=== PATIENT | female | born 1995 | race American Indian/Alaskan Native ===

== ENCOUNTER 2019-02-25 18:50 | Emergency (ER) | payer OTHER ==
[2019-02-25] MEDS ORDERED: HYDROCODONE/APAP 5/325 MG TAB ONE (19:31)
[2019-02-25] MEDS ORDERED: LORAZEPAM 1 MG TABLET ONE (19:31)
[2019-02-25] MEDS ORDERED: TETANUS & DIPHTHERIA TOX,ADULT 0.5 ML VIAL ONE (19:32)
[2019-02-25] MEDS ORDERED: BUPIVACAINE 0.5% PF 10 ML VIAL ONE (20:24)
[2019-02-25] MEDS ORDERED: LIDOCAINE 2% MPF 5 ML VIAL ONE (20:24)
--- NOTE | 2019-02-25 20:40 | RAD REPORT ---
EXAM DESCRIPTION: RAD -Hand Left 3 View - 02/25/2019 8:12 pm CLINICAL HISTORY: Left hand pain status post injury FINDINGS: Small densities adjacent to the fourth terminal tuft likely represent avulsion fracture. A tiny density lies adjacent to the tip terminal tuft which could represent a fracture or foreign bod y. No dislocation is seen.
--- NOTE | 2019-02-25 21:19 | EDPHYS ---
Physician Documentation [facility] Name: Gosia Anderson Age: 24 yrs Sex: Female : 1995 Arrival Date: 02/25/2019 Time: 18:51 Bed 13 Private MD: Unknown, Unknown ED Physician Lebron White HPI: 02/25 19:05 This 24 yrs old Other Female presents to ER via Ambulatory with complaints of Finger jmm Injury, Laceration To Hand. 19:05 The patient or guardian reports injury, pain. Onset: The symptoms/episode jmm began/occurred acutely, just prior to arrival. Modifying factors: The symptoms are alleviated by nothing, the symptoms are aggravated by movement. Associated signs and symptoms:. This is a 24 year old female with no chronic medical conditions that presents to the ED with complaints of left 4th and 5th finger pain. Patient states a window slammed on her hand. Denies other injury. Unsure on tetanus immunization.. Historical: - Allergies: 19:02 No Known Allergies; la1 - PMHx: 19:02 None; la1 - Immunization history:: Adult Immunizations up to date. - Social history:: Smoking status: Patient/guardian denies using tobacco. - Ebola Screening: : No symptoms or risks identified at this time. ROS: 19:05 Constitutional: Negative for fever, chills, and weight loss, Cardiovascular: Negative jmm for chest pain, palpitations, and edema, Respiratory: Negative for shortness of breath, cough, wheezing, and pleuritic chest pain. 19:05 Constitutional: Positive for 19:05 MS/extremity: Positive for injury or acute deformity, pain. 19:05 Skin: Positive for laceration(s). 19:05 All other systems are negative. Exam: 19:05 Head/Face: atraumatic. Eyes: EOMI, no conjunctival erythema appreciated ENT: Moist jmm Mucus Membranes Neck: Trachea midline, Supple Chest/axilla: Normal chest wall appearance and motion. Cardiovascular: Regular rate and rhythm. No edema appreciated Respiratory: Normal respirations, no respiratory distress appreciated Abdomen/GI: Non distended, soft Back: Normal ROM 19:05 Constitutional: The patient appears in no acute distress, alert, awake. 19:05 Musculoskeletal/extremity: from noted to the left 4th and 5th finger, < 2 sec dist cap refill, NVI. transverse nail plate disruption noted to the left 4th finger. 19:05 Skin: laceration noted to the nail plate of the left 4th finger. 19:05 Neuro: Motor: is normal. 19:05 Psych: Behavior/mood is pleasant, cooperative. Vital Signs: 19:02 BP 129 / 91; Pulse 140; Resp 18; Temp 97.5; Pulse Ox 98% on R/A; Weight 70.76 kg; la1 Height 5 ft. 3 in. (160.02 cm); 19:56 BP 109 / 72; Pulse 98; Resp 18; Pulse Ox 99% ; ea 20:00 BP 129 / 74; Pulse 110; Resp 18; Pulse Ox 99% ; ea 21:15 BP 124 / 74; Pulse 99; Resp 18; Pulse Ox 99% ; ea 19:02 Body Mass Index 27.63 (70.76 kg, 160.02 cm) la1 Laceration: 21:15 Wound Repair of 1.5cm ( 0.6in ) subcutaneous laceration to left ring fingernail. Distal jmm neuro/vascular/tendon intact. Anesthesia: Local anesthetic administered with 3 mls of Lido/Marcaine. Wound prep: Moderate cleansing with betadine by wi. Skin closed with 2 4-0 Prolene using simple sutures and sterile technique. Patient tolerated well. MDM: 19:05 Patient medically screened. [facility] 21:15 Data reviewed: vital signs, nurses notes. [facility] 21:15 Counseling: I had a detailed discussion with the patient and/or guardian regarding: the [facility] historical points, exam findings, and any diagnostic results supporting the discharge/admit diagnosis, radiology results, the need for outpatient follow up, to return to the emergency department if symptoms worsen or persist or if there are any questions or concerns that arise at home. 21:41 ED course: Patient given wound infection return precautions. . 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 Exp: ea 11/19/2020. Lot #: [id number]. } Route: IM; Site: right deltoid; 20:50 Follow up: Response: No adverse reaction ea 21:17 Drug: Lidocaine (1 %) 5 mg {Note: administered by provider.} Route: Infiltration; ea 21:18 Drug: Marcaine (0.5 %) 10 ml {Note: administered by provider.} Volume: 10 ml; Route: ea Infiltration; Disposition: 02/26 06:59 Co-signature as Attending Physician, Lebron White MD. rn Disposition: 02/25/19 21:18 Discharged to Home. Impression: Nondisplaced fracture of distal phalanx of left ring finger, Laceration without foreign body of finger with damage to nail. - Condition is Stable. - Discharge Instructions: Finger Fracture, Laceration Care, Adult, Nail Avulsion. - Prescriptions for Cephalexin 500 mg Oral Capsule - take 1 capsule by ORAL route every 6 hours for 10 days; 40 capsule. Tylenol- Codeine #3 300-30 mg Oral Tablet - take 1 tablet by ORAL route every 6 hours As needed; 12 tablet. - Medication Reconciliation Form, Thank You Letter, Antibiotic Education, Prescription Opioid Use form. - Follow up: Private Physician; When: 1 week; Reason: Recheck today's complaints, Continuance of care, Re-evaluation by your physician. Signatures: Dispatcher [employer] EDMS Yoav Elizabeth PA PA jmm Nieto, Roman, MD MD rn Attema, Lee, RN RN la1 Antunez, Elena, RN RN ea Corrections: (The following items were deleted from the chart) 02/25 21:53 21:18 02/25/2019 21:18 Discharged to Home. Impression: Nondisplaced fracture of distal ea phalanx of left ring finger; Laceration without foreign body of finger with damage to nail. Condition is Stable. Forms are Medication Reconciliation Form, Thank You Letter, Antibiotic Education, Prescription Opioid Use. Follow up: Private Physician; When: 1 week; Reason: Recheck today's complaints, Continuance of care, Re-evaluation by your physician. [facility]
--- NOTE | 2019-02-25 21:19 | ER ---
Nurse's Notes [facility] Name: Gosia Anderson Age: 24 yrs Sex: Female : 1995 Arrival Date: 02/25/2019 Time: 18:51 Bed 13 Private MD: Unknown, Unknown Diagnosis: Nondisplaced fracture of distal phalanx of left ring finger;Laceration without foreign body of finger with damage to nail Presentation: 02/25 19:01 Presenting complaint: Patient states: The window fell on my left 4th and 5th fingers. la1 Transition of care: patient was not received from another setting of care. Onset of symptoms was February 25, 2019. Risk Assessment: Do you want to hurt yourself or someone else? Patient reports no desire to harm self or others. Initial Sepsis Screen: Does the patient meet any 2 criteria? No. Patient's initial sepsis screen is negative. Does the patient have a suspected source of infection? No. Patient's initial sepsis screen is negative. Care prior to arrival: None. 19:01 Method Of Arrival: Ambulatory la1 19:01 Acuity: NATALIYA 4 la1 Historical: - Allergies: 19:02 No Known Allergies; la1 - PMHx: 19:02 None; la1 - Immunization history:: Adult Immunizations up to date. - Social history:: Smoking status: Patient/guardian denies using tobacco. - Ebola Screening: : No symptoms or risks identified at this time. Screenin:56 Abuse screen: Denies threats or abuse. Nutritional screening: No deficits noted. ea Tuberculosis screening: No symptoms or risk factors identified. Fall Risk None identified. Assessment: 19:30 General: Appears uncomfortable, Behavior is calm, cooperative, appropriate for age. ea Pain: Complains of pain in dorsal aspect of distal phalanx of left ring finger, dorsal aspect of distal phalanx of left little finger, left ring fingernail and left little fingernail Quality of pain is described as throbbing. Neuro: Level of Consciousness is awake, alert, obeys commands, Oriented to person, place, time, situation. Cardiovascular: Patient's skin is warm and dry. Respiratory: Airway is patent Respiratory effort is even, unlabored, Respiratory pattern is regular, symmetrical. Derm: Skin is pink, warm \T\ dry. Musculoskeletal: Swelling present in dorsal aspect of distal phalanx of left ring finger, left little finger, dorsal aspect of distal phalanx of left little finger, left ring fingernail and left little fingernail. Injury Description: Laceration sustained to left ring fingernail and left little fingernail is laceration with nail involvement was sustained 30-60 minutes ago. a small amount of bleeding noted at this time. 19:54 Reassessment: Patient and/or family updated on plan of care and expected duration. Pain ea level reassessed. Patient is alert, oriented x 3, equal unlabored respirations, skin warm/dry/pink. Pt reports pain and anxiety has decreased. 20:00 Reassessment: Patient and/or family updated on plan of care and expected duration. Pain ea level reassessed. Patient is alert, oriented x 3, equal unlabored respirations, skin warm/dry/pink. 21:15 Reassessment: Patient and/or family updated on plan of care and expected duration. Pain ea level reassessed. Patient is alert, oriented x 3, equal unlabored respirations, skin warm/dry/pink. 21:44 Reassessment: Patient and/or family updated on plan of care and expected duration. Pain ea level reassessed. Patient is alert, oriented x 3, equal unlabored respirations, skin warm/dry/pink. Discharge instruction given to patient, verbalized the understanding of instruction. Pt left ED ambulatory with family, pt tolerating well. Vital Signs: 19:02 BP 129 / 91; Pulse 140; Resp 18; Temp 97.5; Pulse Ox 98% on R/A; Weight 70.76 kg; la1 Height 5 ft. 3 in. (160.02 cm); 19:56 BP 109 / 72; Pulse 98; Resp 18; Pulse Ox 99% ; ea 20:00 BP 129 / 74; Pulse 110; Resp 18; Pulse Ox 99% ; ea 21:15 BP 124 / 74; Pulse 99; Resp 18; Pulse Ox 99% ; ea 19:02 Body Mass Index 27.63 (70.76 kg, 160.02 cm) la1 ED Course: 18:51 Patient arrived in ED. ag5 18:52 Unknown, Unknown is Private Physician. [facility] 18:56 [facility] Elizabeth [facility] 18:56 Lebron White MD is Attending Physician. [facility] 19:02 Triage completed. la1 19:02 Margarita Manuel, RN is Primary Nurse. ea 19:03 Arm band placed on right wrist. la1 19:30 Patient has correct armband on for positive identification. Bed in low position. Call ea light in reach. Side rails up X2. 20:12 Hand Left 3 View XRAY In Process Unspecified. EDMS 21:15 Assist provider with laceration repair on left hand that was 2.5 cm. or less using ea sutures. Set up tray. Performed by Yoav AMADOR Patient tolerated well. 21:47 Patient did not have IV access during this emergency room visit. 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 Lot #: [id number]. } Route: IM; Site: right deltoid; 20:50 Follow up: Response: No adverse reaction ea 21:17 Drug: Lidocaine (1 %) 5 mg {Note: administered by provider.} Route: Infiltration; ea 21:18 Drug: Marcaine (0.5 %) 10 ml {Note: administered by provider.} Volume: 10 ml; Route: ea Infiltration; Outcome: 21:18 Discharge ordered by MD. alice 21:47 Discharged to home ambulatory, with family. ea 21:47 Condition: improved 21:47 Discharge instructions given to patient, Instructed on discharge instructions, follow up and referral plans. medication usage, Demonstrated understanding of instructions, follow-up care, medications, Prescriptions given X 2. 21:53 Patient left the ED. ea Signatures: Dispatcher [employer] EDYoav eHaly PA PA jmm Attema, Lee, RN RN la1 Antunez, Elena, Reyna Sher RN, ea ag5 Corrections: (The following items were deleted from the chart) 21:44 21:15 Assist provider with laceration repair on left hand Set up tray. Performed by don AMADOR Patient tolerated well. ea
== END 2019-02-25 21:53 | disposition home or self-care (01) ==
LOC: ER 18:50
PROC: 0JQK0ZZ Repair Left Hand Subcutaneous Tissue and Fascia, Open Approach (ICD-10-PCS; principal; 2019-02-25)
DX: S62.665A Nondisplaced fracture of distal phalanx of left ring finger, initial encounter for closed fracture (principal); W22.8XXA Striking against or struck by other objects, initial encounter; Y93.9 Activity, unspecified; Y92.9 Unspecified place or not applicable; Z23 Encounter for immunization
CPT/HCPCS: 90471; 90714; 99284